=== PATIENT | male | born 1980 | race Caucasian/White ===

== ENCOUNTER 2019-06-17 10:05 | Outpatient (CLI) | payer BC, SELFPAY ==
[2019-06-16 21:53] VITALS: BMI 23.7
--- NOTE | ~2019-06-17 | BM_ITS ---
EXAMINATION: CCL bone marrow asp w bx diag DATE: 06/17/2019 11:53 INDICATION: Pancytopenia. Non-Hodgkin's lymphoma. TECHNIQUE: A time-out was performed to verify the patient's name, date of , and procedure to b e performed. The procedure including the risks, benefits, and alternatives was discussed with the pat ient. Risks discussed included bleeding and infection. The patient understood the risks and agreed to proceed. The skin overlying the right posterior iliac spine was prepped and draped in usual sterile fashion. Anesthetic was administered with 1% lidocaine subcutaneously and along the periosteum. Syste yulissa analgesia was provided with 75 mcg fentanyl IV. An 11 gauge needle was inserted into the ilium wi th fluoroscopic guidance. Bone marrow was aspirated. An 8 gauge needle was then inserted into the dayis um with fluoroscopic guidance. A core bone marrow biopsy was obtained. There were no immediate compli cations. Fluoroscopy exposure time was 0.0 minutes. The total number of images was 13. FINDINGS: Real-time fluoroscopy demonstrates a marker overlying the right posterior iliac spine. IMPRESSION: 1. Successful fluoro-guided bone marrow aspiration. 2. Successful fluoro-guided bone marrow core biopsy. Reviewed, dictated and finalized at location A. [employer]
[2019-06-17 10:37] VITALS: BP 120/85; PULSE 85; RESP 18; TEMP 37.1; O2SAT 100
[2019-06-17 10:39] LABS: Hematocrit 37.1 % (42.0-52.0); Hemoglobin 13.2 g/dL (14.0-18.0); Mean Corpuscular HGB Conc 35.6 g/dl (32-36); Mean Corpuscular Hemoglobin 34.7 pg (26-34); Mean Corpuscular Volume 97.6 fl (80-100); Mean Platelet Volume 12.5 fl (7.4-10.4); Platelet Count Result 57 k/mm3 (150-375); White Blood Count 2.5 K/mm3 (4.5-10.0)
--- NOTE | 2019-06-17 10:41 | SUR.PREOP ---
Patient arrives to [facility] room 3 for a Bone Marrow Aspiration and Biopsy. Oriented to unit, procedure explained, all questions answered, IV started, labs drawn and sent, vitals obtained, and consent signed.
[2019-06-17 10:49] LABS: INR 1.1
[2019-06-17 11:55] VITALS: BP 112/80; PULSE 86; RESP 19; O2SAT 100
--- NOTE | 2019-06-17 11:58 | SUR.PHASEII ---
Patient returns to [facility] post Bone Marrow Aspiration and Biopsy with Dr. Ramirez. at bedside instructed on bedrest and restrictions.
[2019-06-17 12:00] VITALS: BP 114/83; PULSE 76; RESP 20; O2SAT 100
[2019-06-17 12:15] VITALS: BP 119/79; PULSE 72; RESP 16; O2SAT 100
--- NOTE | 2019-06-17 12:17 | SUR.PHASEII ---
1200 Pt back from bone marrow aspiration and biopsy. Laying flat for 1 hour then patient will be discharged as long as there is no bleeding from site. Will cont to monitor closely.
[2019-06-17 12:45] VITALS: BP 119/68; PULSE 78; RESP 16; O2SAT 100
--- NOTE | 2019-06-17 12:55 | SUR.PHASEII ---
7413 Detailed written and verbal discharge instructions reviewed with patient and at bedside. Both verbalize understanding. Pt taken out in wheelchair.
== END 2019-06-17 10:06 | disposition home or self-care (01) ==
PROVIDERS: PCP Family Medicine; Referring Provider Internal Medicine Hematology & Oncology; Visit Provider Radiology Diagnostic Radiology
DX: D61.818 Other pancytopenia (principal)
CPT/HCPCS: 36415; 38222; 85027; 85610; 88184; 88185; 88305; 88311; 88313; 88360; J3010; J7040